=== PATIENT | male | born 1955 | race Caucasian/White ===

== ENCOUNTER 2021-10-09 13:50 | Emergency (ER) | payer MEDICARE, OTHER ==
[~2021-10-09] VITALS: Ht 170.2 cm; Wt 127.0 kg
[2021-10-09] MEDS ORDERED: Triamcinolone A15 G2 TOP (15:42)
[2021-10-09] MEDS ORDERED: BENADRYL25 MG PO (15:42)
== END 2021-10-09 15:54 | disposition home or self-care (01) ==
LOC: ER 13:50
DX: R21 Rash and other nonspecific skin eruption (principal); Z88.5 Allergy status to narcotic agent; F17.200 Nicotine dependence, unspecified, uncomplicated
CPT/HCPCS: 99282

== ENCOUNTER → 2023-04-06 | Outpatient (CLI) | payer MEDICARE, OTHER ==
[~2023-04-06] MED LIST: BENADRYL25 MG PO; Triamcinolone A15 G2 TOP
== END | disposition home or self-care (01) ==
LOC: LAB SHORT 13:13 → LAB 13:13
DX: L08.9 Local infection of the skin and subcutaneous tissue, unspecified (principal)
CPT/HCPCS: 87070; 87205